=== PATIENT | female | born 1995 | race Caucasian/White ===

== ENCOUNTER 2016-12-29 08:45 | Emergency (ER) | payer MEDICAID, OTHER ==
[~2016-12-29] VITALS: Wt 51.0 kg
[~2016-12-29 08:45] MED LIST: EMBRIL
[2016-12-29] MEDS ORDERED: ERYT1OIN6 LEFT EYE (09:12)
--- NOTE | 2016-12-29 11:07 | ERD ---
ER Documentation Chief Complaint Date/Time DATE: 12/29/16 TIME: 11:06 Chief Complaint left eye redness HPI 21-year-old female presents to the emergency department complaining of a lesion on her left upper eyelid that is causing her discomfort. She denies any significant tenderness. Denies any discharge, vision changes. ROS All systems reviewed and are negative except as per history of present illness. Medications Home Meds Active Scripts Erythromycin (Erythromycin Opth) 3.5 Gm Oint..gm., 1 APPLIC LEFT EYE QID, #1 Prov:EMMANUELLE PHAM PA-C 12/29/16 Reported Medications [Embril] No Conflict Check 03/23/13 [Embril] No Conflict Check 08/15/12 Allergies Allergies: Coded Allergies: No Known Drug Allergy (Verified Allergy, Mild, 12/29/16) PMhx/Soc History of Surgery: Yes (HERNIA) Anesthesia Reaction: No Hx Neurological Disorder: No Hx Respiratory Disorders: No Hx Cardiac Disorders: No Hx Psychiatric Problems: No Hx Miscellaneous Medical Probl: Yes (ARTHRITIS) Hx Alcohol Use: No Hx Substance Use: No Hx Tobacco Use: Yes (MEDICAL MARIJUANA) Smoking Status: Never smoker Physical Exam Vitals Vital Signs Date Time Temp Pulse Resp B/P Pulse Ox O2 Delivery O2 Flow Rate FiO2 12/29/16 08:46 98.3 80 18 106/56 97 Physical Exam Const: [] Head: Atraumatic Eyes: Papule on left upper eye lid ENT: Normal External Ears, Nose and Mouth. Neck: Full range of motion..~ No meningismus. Resp: Clear to auscultation bilaterally Cardio: Regular rate and rhythm, no murmurs Abd: Soft, non tender, non distended. Normal bowel sounds Skin: No petechiae or rashes Back: No midline or flank tenderness Ext: No cyanosis, or edema Neur: Awake and alert Psych: Normal Mood and Affect Procedures/MDM 21-year-old female presents with stye versus chalazion. Patient stable to be discharged home with prescription for erythromycin ointment and warm compresses. 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 She understands and agrees with plan Departure Diagnosis: Primary Impression: Stye Condition: Stable Patient Instructions: Deana Winkler Referrals: [facility] Hours: Mon - Fri 9:00 AM - 5:00 PM Additional Instructions: FOLLOW UP WITH YOUR PRIMARY CARE PHYSICIAN TOMORROW.Return to this facility if you are not improving as expected. EMMANUELLE PHAM PA-C Dec 29, 2016 11:07
== END 2016-12-29 09:38 | disposition home or self-care (01) ==
LOC: FTE 08:45
DX: H00.014 Hordeolum externum left upper eyelid (principal); Z87.891 Personal history of nicotine dependence
CPT/HCPCS: 99283

== ENCOUNTER 2017-01-30 07:32 | Emergency (ER) | payer MEDICAID ==
[~2017-01-30] VITALS: Ht 152.4 cm; Wt 51.5 kg
[~2017-01-30 07:32] MED LIST changes: +ERYT1OIN6 LEFT EYE
[2017-01-30 07:34] VITALS: Ht 152.4 cm; Wt 51.5 kg
[2017-01-30] MEDS ORDERED: MED4DP PO (08:01)
[2017-01-30] MEDS ORDERED: GUAI-637 PO (08:01)
[2017-01-30] MEDS ORDERED: ALBU8.5H3 INH (08:02)
--- NOTE | 2017-01-30 08:11 | ERD ---
ER Documentation Chief Complaint Chief Complaint Complains of cough, colds and flu symptoms HPI This is a 21-year-old female presents to the ER with a cough over the last 5 days. Cough is worse at night and is sometimes with green sputum, and other times with clear sputum. Patient is developing a sore throat however denies any ear pain. She denies any fevers or chills. She denies any chest pain or shortness of breath. There are no sick contacts at home. Patient has not traveled anywhere. ROS 12 point review of systems was done, all negative except per HPI. Medications Home Meds Active Scripts Albuterol Sulfate* (Proair HFA*) 8.5 Gm Hfa.aer.ad, 2 PUFF INH Q4, #1 INHALER Prov:BRIGHT AGUILAR 01/30/17 Guaifenesin* (Robitussin*) 100 Mg/5 Ml Syrup, 200 MG PO Q4H Y for COUGH for 5 Days, ML Prov:BRIGHT AGUILAR 01/30/17 Methylprednisolone* (Medrol* DOSE PACK) 4 Mg/Dose-Pack Tab.ds.pk, 4 MG PO . DIRECTED for 6 Days, PACKET Prov:BRIGHT AGUILAR 01/30/17 Erythromycin (Erythromycin Opth) 3.5 Gm Oint..gm., 1 APPLIC LEFT EYE QID, #1 Prov:EMMANUELLE PHAM PA-C 12/29/16 Reported Medications [Embril] No Conflict Check 03/23/13 [Embril] No Conflict Check 08/15/12 Allergies Allergies: Coded Allergies: No Known Drug Allergy (Verified Allergy, Mild, 01/30/17) PMhx/Soc History of Surgery: Yes (HERNIA) Anesthesia Reaction: No Hx Neurological Disorder: No Hx Respiratory Disorders: No Hx Cardiac Disorders: No Hx Psychiatric Problems: No Hx Miscellaneous Medical Probl: Yes (ARTHRITIS) Hx Alcohol Use: No Hx Substance Use: No Hx Tobacco Use: Yes (MEDICAL MARIJUANA) Smoking Status: Current every day smoker Physical Exam Vitals Vital Signs Date Time Temp Pulse Resp B/P Pulse Ox O2 Delivery O2 Flow Rate FiO2 01/30/17 07:34 97.7 65 20 110/65 98 Physical Exam GENERAL: The patient is well-developed, well-nourished, in no acute distress. NECK: Cervical spine is non tender with no step off. Supple, no nuchal rigidity HEENT: Atraumatic. Pupils equal, round and reactive to light. Extraocular muscles are grossly intact. Conjunctivae pink, no discharge. Bilateral tympanic membranes are clear with no evidence of erythema, effusion or dulling of the light reflex. Tonsilar erythema with no exudates or uvular deviation. Clear rhinorrhea. RESPIRATORY: Clear to auscultation bilaterally. There are no rales, wheezes or rhonchi. HEART: Regular rate and rhythm. No murmurs, clicks, rubs or gallops. EXTREMITIES: No clubbing or cyanosis. Full range of motion. Grossly neurovascularly intact. NEUROLOGIC: Alert and oriented. Cranial nerves II through XII are intact. SKIN: There is no rash. The skin is warm and dry. Procedures/MDM Differential diagnosis includes but is not limited to; Viral URI, allergic rhinitis, bronchitis, pertussis,pneumonia. This is likely viral in etiology, likely bronchitis. Clinical suspicion for pneumonia is low as patient appears well, is not hypoxic or in any respiratory distress. Additionally, patients physical examination is benign. Plan was discussed with patient they understand and agree. Patient needs to follow up with PCP in 1-2 days or return to ER sooner if symptoms worsen. Departure Diagnosis: Primary Impression: Bronchitis Condition: Stable Patient Instructions: Bronchitis With Wheezing (Adult) Additional Instructions: Call your primary care doctor TOMORROW for an appointment during the next 1-2 days.See the doctor sooner or return here if your condition worsens before your appointment time. BRIGHT AGUILAR Jan 30, 2017 08:11
[2017-01-30 08:40] VITALS: BP 109/65; PULSE 69; RESP 20
== END 2017-01-30 08:41 | disposition home or self-care (01) ==
LOC: FTE 07:32
DX: J40 Bronchitis, not specified as acute or chronic (principal); F17.210 Nicotine dependence, cigarettes, uncomplicated
CPT/HCPCS: 99284

== ENCOUNTER 2017-06-25 06:16 | Emergency (ER) | END 2017-06-25 08:12 | disposition home or self-care (01) ==